=== PATIENT | male | born 1965 | race Caucasian/White ===

== ENCOUNTER 2017-01-09 06:17 | Day surgery (SDC) | payer BC ==
[~2017-01-09] VITALS: Ht 180.3 cm; Wt 86.7 kg
[~2017-01-09 06:17] MED LIST: IBUP200C5 PO
[2017-01-09 06:35] VITALS: BP 111/78; PULSE 85; RESP 16; TEMP 97.8; O2SAT 97; Ht 180.3 cm; Wt 86.7 kg
[2017-01-09] MEDS ORDERED: LIDOCAINE 1% (10mg/ml) 2ml SDV INJ ONE (07:00)
[2017-01-09] MEDS ORDERED: LR 1,000 ML IV SCH (07:00)
--- NOTE | 2017-01-09 07:22 | ANESPREOP ---
Anesthesia Record Date and Time DATE: 01/09/17 TIME: 07:21 Pre-Op Diagnosis screening Proposed Surgical Procedure COLONOSCOPY NPO since: mn Allergies: Coded Allergies: No Known Allergies (Unverified , 01/09/17) Ht/Wt/BMI Height: 5 ' 11.00 " Weight: 86.700 kg BMI: 26.7 kg/m2 Vital Signs Date Time Temp Pulse Resp B/P Pulse Ox O2 Delivery O2 Flow Rate FiO2 01/09/17 06:35 97.8 85 16 111/78 97 Room Air Medications Inpatient Medications Current Medications Medications (Trade) Dose Ordered Sig/Brea Start Time Stop Time Status Last Admin Dose Admin Lactated Ringer's (Lactated Ringers) 1,000 ml @ 50 mls/hr Q20H 01/09/17 07:00 01/09/17 06:52 50 MLS/HR Ibuprofen (Advil) 200 Mg Capsule, 200 MG PO PRN, (Reported) Last Taken: on 01/08/17 1400 Currently on Beta Rossana: No Medical/Surgical History Anesthesia PMH: Denies: *Angina, *Diabetes, *Dyspnea, *Hypertension, *MS, Anesthesia Reactions (NO AIRWAY ISSUES), Arthritis, Asthma, CHF, COPD, CVA/ Stroke/TIA, Cancer, Clotting Problems, Deep Vein Thrombosis, Glaucoma, Hepatitis , Hiatal Hernia, Malignant Hyperthermia, Pneumonia, Reflux, Renal Disease, Seizures, Sleep Apnea, Thyroid Disease, Tuberculosis Alcohol Intake: none Past Surgical History Orthopedic Surgeries: No Abdominal Surgeries: No Genitourinary Surgeries: No Cardiac Surgeries: No Endocrine Surgeries: No Reproductive Surgeries: No Neurological Surgeries: No Ear Surgeries: No Nose Surgeries: No Throat Surgeries: No Other Surgeries: Yes - COLONOSCOPY Anesthesia Adverse Reactions: FOUND none Family Hx of Anesthesia Advers: none Pertinent Findings EKG Rhythm: Sinus Rhythm Physical Exam Respiratory: Lungs clear Cardiovascular: FOUND No murmur Airway Assessment Mallampati Score: II TMD: 3 Fingerbreadths Neck Extension: Fair Overall Assessment: No Airway Concerns ASA: 1 Plan Anesthesia Plan: TIVA Discussion Discussed risks/options/alternatives of anesthesia and questions answered. Patient consents. Nursing pain assessment noted. Attestation Statement Prior to the delivery of any anesthetic medication, I examined the patient, developed the plan, obtained the patient's consent and discussed the risk and benefits of the procedure with the patient/guardian. TAMIKA YOST CRNA January 09, 2017 07:22
[2017-01-09] MEDS ORDERED: LIDOCAINE 2% (20mg/ml) 5ml PF SDV ONE (07:25)
[2017-01-09] MEDS ORDERED: PROPOFOL 500mg 50 ML IV ONE (07:25)
[2017-01-09] MEDS ORDERED: FENTANYL 100mcg/2ml INJECTION ONE (07:25)
[2017-01-09 08:01] VITALS: BP 106/61; PULSE 68; RESP 12; TEMP 98.9; O2SAT 92
--- NOTE | 2017-01-09 08:04 | ANESPO ---
Post-Op Note Date 01/09/17 Time: 08:03 Status Pt Participated in Evaluation: Pt participated in person Vital Signs Date Time Temp Pulse Resp B/P Pulse Ox O2 Delivery O2 Flow Rate FiO2 01/09/17 06:35 97.8 85 16 111/78 97 Room Air Respiratory Function: Airway patent Mental Status: Alert/oriented Pain Level Intensity: 0 Hydration: IV infusing Complications during Recovery None apparent Follow-Up Instructions Instructions Per Surgeon TAMIKA YOST CRNA January 09, 2017 08:04
[2017-01-09 08:16] VITALS: BP 104/61; PULSE 75; RESP 16; O2SAT 93
[2017-01-09 08:31] VITALS: BP 111/69; PULSE 74; RESP 22; O2SAT 94
--- NOTE | 2017-01-09 16:52 | OPNOTEF ---
DATE OF SERVICE 01/09/2017 LOCATION [facility] PREOPERATIVE DIAGNOSIS Screening colonoscopy with history of rectal bleeding thought to be hemorrhoidal. POSTOPERATIVE DIAGNOSIS 2-mm nodular polyps at 10 cm and at 15 cm. PROCEDURE Colonoscopy with cold forceps polypectomy of polyps at 10 cm and at 15 cm. NARRATIVE OF PROCEDURE The patient was prepped with Colyte the evening prior to the procedure. He was placed in the left lateral position. After a benign digital rectal examination the colonoscope was inserted and advanced to the cecum with cecal landmarks identified. The cecum, ascending colon, transverse colon showed no evidence of hemorrhage, mass lesions, ulcerations, polyps or inflammatory changes. The sigmoid colon was remarkable for two small nodular polyps. One was at 10 cm and was 1-2 mm in diameter and nodular in appearance. This was removed with the cold forceps grossly and sent for pathology. A similar polyp was noted at 15 cm and removed likewise. It was also sent for pathology. Both polyps were grossly completely removed. The remainder of the sigmoid, rectum and anus were clear. The colon was suctioned and the scope was removed. The patient tolerated the procedure well. Followup colonoscopy recommended in five years or sooner as clinically indicated. JASE
== END 2017-01-09 08:40 | disposition home or self-care (01) ==
LOC: NSC 06:17
DX: K63.5 Polyp of colon (principal); K92.1 Melena; Z86.010 Personal history of colon polyps; Z79.899 Other long term (current) drug therapy; Z87.891 Personal history of nicotine dependence
CPT/HCPCS: 45380; J2704; J3010; J7120; 88305